=== PATIENT | female | born 1990 ===

== ENCOUNTER 2023-11-08 08:48 | Outpatient (AMB) | payer OTHER, SELFPAY ==
--- NOTE | 2023-11-08 08:50 | MHC.OFFVIS ---
Vital Signs 11/08/23 08:58 Height 5 ft 3 in Weight 136 lb 14.513 oz BMI 24.2 BP 118/74 Blood Pressure Location Rt brachial Position Sitting Pulse 93 Pulse Source Pulse Oximeter Pulse Oximetry (%) 99 Oxygen Delivery Method Room Air Intake Visit Reasons: + CARRIE/Joint pain Intake Note: New patient, externally referred, presents to office today for joint pain and +CARRIE. 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 Since patient has been having multiple joint pain including her wrists, hands, elbows, shoulders, knees. She states that her knees get red and swell up a little bit when she walks about a mile. states that her fingers also swell with walking. Morning stiffness of her hands lasting 15-20 minutes but no swelling. She states that she gets frequent canker sores. She states that she was diagnosed with psoriasis by her PCP 2 years ago and does not recall any specific treatment. Patient states that she is flexible but does not recall any joint dislocations. Referred to occupational therapy for her hands and was prescribed different exercises and finger splints with some relief. She has also been doing physical therapy for her neck, shoulders. She states that her fingers become pale and slightly bluish, and get numb in the cold. Denies ever having digital tip ulcers. Denies any history of DVT/PE. He denies any blood or frothy urine. Denies any recent unintentional weight loss. She is unaware of any family history of an autoimmune rheumatic disease. She states that she has in the process of getting worked up for celiac disease and will get a biopsy soon. Patient never attempted . [facility] Medical History Anxiety Environmental allergies GERD (gastroesophageal reflux disease) Attention deficit hyperactivity disorder Autism spectrum disorder Vitamin D deficiency Allergic asthma without acute exacerbation or status asthmaticus Family History Father Myocardial infarct Mother Thyroid disease Social History Alcohol intake: current Alcohol intake frequency: holidays/special occasions only Patient Tobacco Use Status: Never used Tobacco Current occupational status: employed Current occupation: baked goods stock clerk Female Reproductive History Menstrual Total pregnancies: 0 Review of Systems Const Reports fatigue Eyes Reports dry eyes and Reports itchy eyes ENT Reports dysphagia, Reports dizziness and Reports mouth lesions GI Reports dysphagia Musc Reports back pain, Reports arthralgias, Reports joint swelling, Reports numbness and Reports stiffness Skin/Breast Reports unusual bruising Neuro Reports dizziness and Reports numbness Psych Reports abnormal sleep pattern and Reports anxiety Endo Reports fatigue and Reports polydipsia Aller/Immun Reports itchy eyes Physical Exam Const General: cooperative, healthy appearing and comfortable Nutritional Appearance: average body habitus Orientation/consciousness: patient oriented x3 Limitations: no limitations HEENT Other: A couple of canker sores on the inner aspect of lower lip on the right Head: Yes normocephalic and Yes atraumatic Mouth: moist mucous membranes Resp Effort & Inspection: normal respiratory effort and able to speak in complete sentences Auscultation: clear to auscultation bilaterally Cardio Rate: regular rate Rhythm: regular rhythm GI Inspection: No distended Palpation (GI): Soft to palpation and nontender Skin General skin exam: no rashes or lesions noted Neuro General: patient oriented x3 Extrem Other: No swollen joints could be appreciated Bilateral tender wrists and pain with flexion Left 5th MCP tenderness Left 1st through 5th MCP tenderness No DIP tenderness Few tender flexor tendons on the left hand Right 2nd through 5th MCP tenderness Second through 5th PIP tenderness No DIP tenderness Third and 4th flexor tendon tenderness Bilateral elbow pain with full extension Negative rotator cuff provocative maneuvers bilaterally Negative Speed's test bilaterally Multiple fibromyalgia tender points Bilateral knee pain with full extension Normal nailfold capillaroscopy Results Reviewed Results Reviewed: Labs 08/2023? HLA B27/SSA/SSB/RF negative CARRIE 1-80 cytoplasmic discrete dots ESR normal? CRP normal? TSH 1.82 Assessment & Plan Assessment & Plan (1) CARRIE positive: Code(s): R76.8 - Other specified abnormal immunological findings in serum Category: Medical Plan: This is a 33-year-old female who presents for evaluation of a positive CARRIE in the context of polyarthralgia. Will order comprehensive serology to screen for underlying autoimmune rheumatic disease. Follow-up in 5-6 weeks Plan I spent 47 minutes reviewing patient's chart, evaluating patient, ordering diagnostic workup, counseling patient and documenting in the chart Orders: Orders CARRIE Reflex Titer and Pattern Today M32.9 - Systemic lupus erythematosus, unspecified Anti Extractable Nuclear Ag Today M32.9 - Systemic lupus erythematosus, unspecified Complement C3 Today M32.9 - Systemic lupus erythematosus, unspecified Protein Creatinine Ratio, Ur Today M32.9 - Systemic lupus erythematosus, unspecified Sjogren's Antibodies Today M32.9 - Systemic lupus erythematosus, unspecified Cyclic Citrullinated Peptide Today M25.50 - Pain in unspecified joint Endomysial IgA rflx Titer Today K90.0 - Celiac disease Immunoglobulin A Today K90.0 - Celiac disease Anti DNA DS Antibody Today M32.9 - Systemic lupus erythematosus, unspecified Complement C4 Today M32.9 - Systemic lupus erythematosus, unspecified C Reactive Protein Today M32.9 - Systemic lupus erythematosus, unspecified DNA Double Stranded-Crithidia Today M32.9 - Systemic lupus erythematosus, unspecified Erythrocyte Sedimentation Rate Today M32.9 - Systemic lupus erythematosus, unspecified UA w Microscopic Today M32.9 - Systemic lupus erythematosus, unspecified Transglutaminase Ab IgG Today K90.0 - Celiac disease Coding Level of Care Code New Pt Level 4 (91033) Diagnoses CARRIE positive R76.8
[2023-11-08 08:58] VITALS: BP 118/74; PULSE 93; O2SAT 99; BMI 24.2
== END 2023-11-08 09:17 | disposition home or self-care (01) ==
LOC: HO.RHE 08:48
PROVIDERS: PCP Physician Assistant Medical; Visit Provider Student in an Organized Health Care Education/Training Program
DX: R76.8 Other specified abnormal immunological findings in serum (principal)
CPT/HCPCS: 99204

== ENCOUNTER → 2023-11-08 08:48 | Outpatient (BNVA) | payer OTHER, SELFPAY | PROVIDERS: PCP Physician Assistant Medical; Visit Provider Student in an Organized Health Care Education/Training Program ==